=== PATIENT | male | born 1990 | race African-American/Black ===

== ENCOUNTER 2017-04-25 04:35 | Emergency (ER) | payer MEDICAID ==
[~2017-04-25] VITALS: Ht 182.9 cm; Wt 73.0 kg
[2017-04-25] MEDS ORDERED: SODIUM CHLORIDE 0.9% 1,000 ML IV ONE (04:42)
[2017-04-25] MEDS ORDERED: MORPHINE SULFATE 4 MG/ML CPJ (NOT FOR IM USE) IV ONE (04:45)
[2017-04-25] MEDS ORDERED: TETANUS, DIPHTHERIA, PERTUSSIS VAC/PF 0.5ML (>7YR OLD) IM ONE (04:45)
[2017-04-25] MEDS ORDERED: CEFAZOLIN 1000MG PREMIX 50 ML IV ONE (04:45)
[2017-04-25] MEDS ORDERED: ONDANSETRON HCL 4MG/2ML VIAL IV ONE (04:45)
[2017-04-25 05:24] LABS: BASOPHILS % 0.7 % (0.0-2.0); EOSINOPHILS % 0.9 % (0.0-5.0); HEMATOCRIT. 38.6 % (42.0-52.0); HEMOGLOBIN. 13.2 g/dL (14.0-18.0); LYMPHOCYTES % 26.6 % (20.0-50.0); MEAN CORPUSCULAR HEMOGLOBIN 30.7 pg (28.0-32.0); MEAN CORPUSCULAR VOLUME 89.8 fL (80.0-94.0); MEAN PLATELET VOLUME 9.1 fl (7.4-10.4); MONOCYTES % 6.1 % (2.0-8.0); NEUTROPHILS % 65.7 % (40.0-76.0); PLATELET 196 x1000/uL (130-400); RED CELL DISTRIBUTION WIDTH 13.4 % (11.6-14.6)
[2017-04-25 05:31] LABS: CARBON DIOXIDE 26 mEq/L (21-32); CHLORIDE 109 mEq/L (98-107); ETHANOL BLOOD 161 mg/dL
[2017-04-25 05:51] LABS: INR 1.3; PROTHROMBIN TIME 13.2 sec (9.4-11.6)
[2017-04-25 06:20] VITALS: BP 139/78
[2017-04-25] MEDS ORDERED: ONDANSETRON 4MG ODT PO ONE (06:30)
[2017-04-25] MEDS ORDERED: ONDANSETRON 4MG ODT ONE (06:38)
== END 2017-04-25 06:35 | disposition home or self-care (01) ==
LOC: ER 04:35
DX: S68.125A Partial traumatic metacarpophalangeal amputation of left ring finger, initial encounter (principal); F17.200 Nicotine dependence, unspecified, uncomplicated; F12.10 Cannabis abuse, uncomplicated; X58.XXXA Exposure to other specified factors, initial encounter; Y93.89 Activity, other specified; Y92.89 Other specified places as the place of occurrence of the external cause; Y99.8 Other external cause status
CPT/HCPCS: 36415; 73130; 80053; 85025; 85610; 96365; 96375; 99285; G0482; J0690; J2270; J2405; J7030; Q0162; Z7610